=== PATIENT | female | born 1990 | race Caucasian/White ===

== ENCOUNTER 2022-05-07 12:10 | Outpatient (CLI) | payer BC, SELFPAY ==
--- NOTE | 2022-05-07 12:15 | CRLHL7_ITS ---
For Patients: As a result of the Cures Act, medical imaging exams and procedure reports are released immediately into your electronic medical record. You may view this report before your referring provider. If you have questions, please contact your health care provider. INDICATION: First trimester scan, establish dates. COMPARISON: None. TECHNIQUE: Real-time pickett-scale imaging of the pelvis was performed. FINDINGS: Sonographic imaging demonstrates a single living intrauterine gestation. The embryo demonstrates a regular cardiac rate measuring 122 beats per minute. The embryo`s crown-rump length measurement of 0.7 cm corresponds to a gestational age of 6 weeks 4 days with a sonographic due date of 12/27/2022. There is a normal-appearing yolk sac. There are no gross abnormalities noted within the embryo at this early state of development. The gestational sac has a normal appearance. There is a 2.1 x 1.4 x 3.1 cm perigestational hemorrhage. The amount of fluid within the sac appears appropriate for gestational age. The cervix is closed. The myometrium appears normal. The ovaries are of normal size. Corpus luteal cyst left ovary measuring 2.8 cm. Hemorrhagic right ovarian cyst measuring 2.4 cm. There are no suspicious fluid collections noted in the cul-de-sac. IMPRESSION: Single living intrauterine with sonographic gestational age 6 weeks 4 days and sonographic due date 12/27/2022. Left fundal subchorionic hemorrhage measuring 2.1 x 1.4 x 3.1 cm. Dictated by Petr Feliz MD @ 05/07/2022 4:38:00 PM (Electronically Signed)
== END 2022-05-07 12:11 | disposition home or self-care (01) ==
PROVIDERS: Visit Provider Advanced Practice Midwife
DX: Z34.91 Encounter for supervision of normal pregnancy, unspecified, first trimester (principal); Z3A.01 Less than 8 weeks gestation of pregnancy
CPT/HCPCS: 76817

== ENCOUNTER 2022-05-07 13:54 | Outpatient (CLI) | payer BC, SELFPAY ==
[2022-05-07 18:06] LABS: Hepatitis B Surface Antigen* Negative (Negative)
[2022-05-07 18:12] LABS: HIV 1/2/P24 Combo Screen* Negative (Negative)
[2022-05-07 18:23] LABS: Hepatitis C Virus Antibody* Negative (Negative)
[2022-05-09 17:16] LABS: Rapid Plasma Reagin (RPR) Non Reactive (Non Reactive)
[2022-05-09 20:42] LABS: Rubella Antibody IgG 14.3 IU/mL
== END 2022-05-07 13:55 | disposition home or self-care (01) ==
PROVIDERS: Visit Provider Advanced Practice Midwife
DX: Z34.81 Encounter for supervision of other normal pregnancy, first trimester (principal); Z3A.01 Less than 8 weeks gestation of pregnancy
CPT/HCPCS: 86592; 86703; 86762; 86787; 86803; 86850; 86900; 86901; 87086; 87340

== ENCOUNTER 2022-05-27 11:20 | Outpatient (CLI) | payer BC, SELFPAY ==
[2022-05-27 14:56] LABS: Chlamydia DNA Amplified* NOT DETECTED (No Detected); GC DNA Amplified* NOT DETECTED (No Detected)
== END 2022-05-27 11:21 | disposition home or self-care (01) ==
PROVIDERS: Visit Provider Physician Assistant
DX: R39.9 Unspecified symptoms and signs involving the genitourinary system (principal); N89.8 Other specified noninflammatory disorders of vagina
CPT/HCPCS: 87086; 87491; 87591

== ENCOUNTER 2022-08-06 12:26 | Outpatient (CLI) | payer BC, SELFPAY | END 2022-08-06 12:27 | disposition home or self-care (01) | LOC: US 12:26 | PROVIDERS: Visit Provider Pediatrics Neonatal-Perinatal Medicine | DX: O26.22 Pregnancy care for patient with recurrent pregnancy loss, second trimester (principal); Z3A.20 20 weeks gestation of pregnancy | CPT/HCPCS: 76811 ==

== ENCOUNTER 2022-08-27 14:31 | Outpatient (CLI) | payer BC, SELFPAY | END 2022-08-27 14:32 | disposition home or self-care (01) | LOC: US 14:31 | PROVIDERS: Visit Provider Pediatrics Neonatal-Perinatal Medicine | DX: O21.0 Mild hyperemesis gravidarum (principal) | CPT/HCPCS: 76816; 76820 ==

== ENCOUNTER 2022-10-01 10:46 | Outpatient (CLI) | payer BC, SELFPAY | END 2022-10-01 10:47 | disposition home or self-care (01) | LOC: NFLDREF 10-03 09:34 | PROVIDERS: Visit Provider Obstetrics & Gynecology | DX: Z34.90 Encounter for supervision of normal pregnancy, unspecified, unspecified trimester (principal) | CPT/HCPCS: 86592 ==

== ENCOUNTER 2022-12-25 09:17 | Inpatient (IN) | payer BC, SELFPAY ==
[2022-12-25] VITALS (11 sets, daily range): BP systolic 109–118; BP diastolic 59–79; PULSE 62–82; RESP 16–18; TEMP 36.3–36.7; O2SAT 99; BMI 28.4
[2022-12-25] MEDS: OXYTOCIN 10 UNIT/ML INJ IM (09:23)
--- NOTE | 2022-12-25 10:37 | W.PM.LDBA ---
Subjective History of Present Illness Date Seen: 12/25/22 Narrative: Patient is being admitted to Labor and Delivery for precipitous labor. She is a 32 year old at 40 2/7 weeks gestation. Her full history and physical was dictated by Dr. LINDO on 12/04/22. Please see this for details. Specific Issues/Plans OB Problem List: WANTS [id number] but does NOT want to know GENDER 1. Unplanned (but happily accepted) - concieved while on oral contraceptives 2. 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 Had been advised to freeze sperm before procedure if they wanted more children. This is NOT from the frozen sperm. 4. Oldest child born with Down's -[id number]: Normal -Level 2 US ordered 06/10/22: Normal anatomy, EFW: <3%. Patient with history of small babies, Dr. Goff recommends a follow up US in 3 weeks for f/u of growth -Dr. Goff F/U US 08/27/22: Breech, SDP:4.7cm, EFW: 10%, BPD: 8%, HC: 6%, AC: 21%, FL: 10%. U/A doppler S/D ratio 3.4. Normal.Recommend f/u scan in 5-6 weeks -Growth US at 28-30 weeks:Patient prefers this to be done a bit later 32 weeks if she continues to measure well during upcoming clinic appointments:Patient is respectfully declining any follow up US due to surprise bills from her last 2 US evaluations. 5. Spotting in early 6. Anxiety about previous miscarriages and risk for this COVID: declines Flu: declines Tdap: declines OB - Problem Based A/P Additional Plan (1) Active labor: Status: Acute Plan I was called that patient was on her way and she thought she might deliver in the car. We met patient at ER door and transferred her to L&D via wheelchair. Patient moved to bed and head seen . We were able to obtain FHR and patient delivered after 2-3 pushes. Delivery/Labor/Induction Plan Plan: expectant management OB Exam Physical Exam Vital signs: Pulse BP 62 116/75 07/06/23 10:36 12/25/22 10:36 Detailed Labor and Delivery Exam Patient Gravid: Yes Dilation (cm): 10 Cervix position: anterior Consistency: soft Tachysystole: No Contraction intensity: Strong/Firm Fetus (Single) Station: +3 Amniotic Membrane Status: SROM Amniotic Membrane Fluid Description: Meconium Stained Heart Rate Baseline: 140
--- NOTE | 2022-12-25 10:38 | W.PM.OBVAGDE ---
OB Procedure Vag Delivery Mother Details Mother Details: The patient is a 32 year-old, 9, Para 4, admitted on 12/25/22 at Days gestation. Additional Details Heart: heart tones during second stage were [] Delivery Details Delivery Details: Delivered over [intact perineum] via [spontaneous] vaginal delivery. was placed on maternal abdomen.? Cord was clamped and cut after a 30-60 second delay. Nose and mouth were bulb suctioned.? Infant weight pending. Event Summary Status: Mother and were stable after delivery.
--- NOTE | 2022-12-25 12:53 | W.PM.VAGDE_ITS ---
OB Procedure Vag Delivery Mother Details Mother Details: The patient is a 32 year-old, 9, Para 4, admitted on 12/25/22 at 40.2Days gestation. : 9 Para: 4 Weeks Gestation: 40.2 Admission Date: 12/25/22 Additional Details Amniotic Membrane Status: SROM Amniotic Membrane Rupture Date: 12/25/22 Amniotic Membrane Rupture Time: 09:00 Amniotic Membrane Fluid Description: Meconium Stained Analgesia/Anesthesia Type: None Waterbirth: No Pitcoin: No Intrapartal Events: Precipitous Labor <3 Hrs Labor Onset: 08:00 Pushin:17 Heart: heart tones during second stage were normal. Delivery Details Delivery Date: 12/25/22 Delivery Time: 09:18 Route of delivery: Infant Gender: Female Viability: Alive; Heart Rate Present Position at Delivery: OA Delivery Details: Delivered over intact perineum via spontaneous vaginal delivery. was liza ezra on maternal abdomen.? Cord was clamped and cut after a 30-60 second delay. Nose and mouth were bulb suctioned.? weight pending. Additional Details Shoulder Dystocia: No Placenta Delivery Time: 09:28 Placental Delivery Description: Spontaneous Procedure Done: Global Blood Loss: 100 Laceration: None Blood Loss Measurement Type: EBL Bakri Used: No Sponge/Need Count Correct: Yes Cord Vessel Description: 3 Vessels (Umbilical cord insertion looked marginal. ) Event Summary Status: Mother and infant were stable after delivery.
[2022-12-26 00:25] VITALS: BP 111/69; PULSE 69; RESP 18; TEMP 36.4; O2SAT 98
[2022-12-26 04:45] VITALS: BP 120/74; PULSE 69; RESP 18; TEMP 36.5; O2SAT 99
[2022-12-26 07:00] LABS: Hemoglobin* 10.5 gm/dL (12.0-16.0)
[2022-12-26 07:21] VITALS: BP 100/67; PULSE 70; RESP 18; TEMP 36.5; O2SAT 97
--- NOTE | 2022-12-26 07:54 | PM.OBDSVD1 ---
DS: Providers Provider Date Seen: 12/26/22 Date of admission: 12/25/22 09:17 Primary care physician: Not a Local Provider Admitting Clinician: Tracee Kunz MD Attending Physician on discharge: Tracee Kunz MD Date of Discharge: 12/26/22 DS: Diagnosis Discharge Diagnosis (1) care following vaginal delivery: Status: Acute (2) Lactating mother: Status: Acute Exam Narrative: Exam Narrative: GENERAL APPEARANCE:? normal affect, alert, no distress? MOOD:? appropriate? CHEST:? clear to auscultation and percussion? HEART:? regular rate and rhythm? ABDOMEN:? soft, non-tender the uterine fundus is 2 cm Below Umbilicus, Midline and is appropriate for the stage of recovery. ? PERINEUM:? mild edema of the perineum, there is a intact perineum that is healing well.? EXTREMITIES:? normal and no edema? Patient has no complaints? No active bleeding?? Doing well? She is requesting discharge home.? Const: Vital Signs, click to edit/add: Vital Signs - 24 hr 12/25/22 09:32 12/25/22 09:43 12/25/22 09:58 Temperature Pulse Rate 76 82 74 Pulse Rate [Pulse Oximeter] Respiratory Rate Blood Pressure 117/59 L 109/66 118/78 Blood Pressure [Ri ght Arm] Pulse Oximetry Oxygen Delivery Me thod 12/25/22 10:13 12/25/22 10:36 12/25/22 10:43 Temperature Pulse Rate 63 62 64 Pulse Rate [Pulse Oximeter] Respiratory Rate Blood Pressure 116/76 116/75 111/73 Blood Pressure [Ri ght Arm] Pulse Oximetry Oxygen Delivery Me thod 12/25/22 10:58 12/25/22 11:13 12/25/22 13:51 Temperature 98.0 F Pulse Rate 74 75 Pulse Rate [Pulse Oximeter] 69 Respiratory Rate 18 Blood Pressure 110/73 112/79 Blood Pressure [Ri ght Arm] 111/77 Pulse Oximetry 99 Oxygen Delivery Me thod Room Air 12/25/22 16:30 12/25/22 20:26 12/26/22 00:25 Temperature 97.4 F L 98.0 F 97.6 F Pulse Rate Pulse Rate [Pulse Oximeter] 69 69 69 Respiratory Rate 18 16 18 Blood Pressure Blood Pressure [Ri ght Arm] 117/76 116/65 111/69 Pulse Oximetry 99 99 98 Oxygen Delivery Me thod Room Air Room Air Room Air 12/26/22 04:45 12/26/22 07:21 Temperature 97.7 F 97.7 F Pulse Rate Pulse Rate [Pulse Oximeter] 69 70 Respiratory Rate 18 18 Blood Pressure Blood Pressure [Ri t Arm] 120/74 100/67 Pulse Oximetry 99 97 Oxygen Delivery Me thod Room Air Room Air OB - DS: Summary Hospital Course Hospital Course: Patient is a 32year old, G 3 now P 2? admitted on 12/25/22 at 40 Weeks, 2 Days gestation for labor.? She had an uncomplicated vaginal delivery.? She delivered a viable female infant.? She is breast feeding and reports things are well.? the patient has done well.? Her pain is well controlled with current medications.? She has no new complaints.? Vitals have been stable. She has remained afebrile. She is voiding without difficulty. She is passing gas and has not had a bowel movement. She is ambulating and denies any dizziness. She is planning condoms for control. Peripartum Data Infant delivery method: Vaginal Laceration description: None Episiotomy description: None complications: none Gender: Female Infant Discharge Plan: Home Status at Discharge Functional status at discharge: independent ambulation Overall status at discharge: patient is progressing back to baseline Time Spent with Patient Time attestation: Total time spent providing and/or coordinating discharge services: Discharge Plan Discharge Disposition: Home, Self-Care Date of Admission: 12/25/22 09:17 Attending Provider on Discharge: Claudia Shah Primary Care Provider: Provider,Not a Local Condition: Stable Anticipated Discharge Date/Time: 12/26/22 11:00 Discharge Medications: New docusate sodium 100 mg Capsule 100 mg PO DAILY Qty: 60 0RF Rx Instructions: Take 1-2 tablets daily as needed for constipation. ibuprofen 600 mg Tablet 600 mg PO Q6H PRNQty: 30 0RF Continued prenat.vits,neal,[id number] Tablet 1 tab PO QDAY ferrous sulfate 325 mg (65 mg iron) tablet,delayed release (DR/EC) 325 mg PO Q OTHER DAY Qty: 30 1RF Discharge Orders: Discharge Order (Routine); Ordered 12/26/22 Ordered By: Claudia Shah Additional Instructions: Discharge instructions were reviewed with the patient including signs and symptoms of infection and home going medications.? Lifting Restrictions: 20 pounds for 6? weeks? ?? Do not drive while taking narcotic pain meds.? Off Work or School for 6 weeks.? ?? Symptoms to report to doctor:? -Bleeding that saturates more than one pad per hour? -Passing clots larger than the size of a golf ball? -Pain not relieved by prescribed medication? -Fever above 100.4 degrees Fahrenheit? -A foul vaginal odor? -Difficulty in emotions, mood and functions? -Thoughts of hurting yourself and/or ? -Painful, reddened area in your breast? -Any drainage, redness or tenderness in your IV/epidural site? -Severe headache that doesn't improve after taking medications? -Changes in vision, including temporary loss of vision, blurred vision, and/or light sensitivity? -Upper abdominal pain (usually under ribs on the right side)? -Decrease in urination or painful, frequent urinating? -Chest pain? -Shortness of breath? -Tenderness or pain with redness and/swelling in the calf(s) of your leg? ?? Follow Up in clinic in 2 and 6 weeks.? ?? consultation services are available to all mothers and babies for the first year after delivery.? To make an appointment, please call [phone].? Activity Level: Activity as Tolerated Discharge Diet: Regular Follow Up Appointments: [facility] [Provider Group] Provider,Not a Local [Primary Care Provider] - Forms: [employer] Info Instructions
== END 2022-12-26 13:30 | disposition home or self-care (01) | DRG 560 ==
PROVIDERS: Admitting Provider Obstetrics & Gynecology; Visit Provider Obstetrics & Gynecology
DX: O62.3 Precipitate labor (principal); O77.0 Labor and delivery complicated by meconium in amniotic fluid; Z37.0 Single live birth; Z3A.40 40 weeks gestation of pregnancy
CPT/HCPCS: 36415; 85018; 88307; J2590

== ENCOUNTER 2023-04-21 08:50 | Outpatient (CLI) | payer BC, SELFPAY | END 2023-04-21 08:51 | disposition home or self-care (01) | LOC: NFLDREF 04-24 07:21 | PROVIDERS: Visit Provider Obstetrics & Gynecology | DX: F41.9 Anxiety disorder, unspecified (principal); R00.2 Palpitations | CPT/HCPCS: 80061; 82306; 84443 ==

== ENCOUNTER 2023-06-10 13:48 | Outpatient (CLI) | payer BC, SELFPAY | END 2023-06-10 13:49 | disposition home or self-care (01) | LOC: RAD 13:49 | PROVIDERS: PCP Internal Medicine; Visit Provider Internal Medicine | DX: R00.2 Palpitations (principal) | CPT/HCPCS: 93306 ==

== ENCOUNTER 2023-08-18 10:49 | Outpatient (CLI) | payer BC, SELFPAY ==
[2023-08-18 11:35] VITALS: BP 120/76; PULSE 102; RESP 16
--- NOTE | 2023-08-18 11:51 | W.PM.STED ---
Stress Test Note Date Date Seen: 08/18/23 Date of test: 08/18/23 Providers Referring provider: Pablo Villafuerte Primary care provider: Sarthak Flores Stress test physician: Danita Serrano Stress Test Note Stress test ordered: Exercise Stress Test Indication for test: Palpitations Stress test medicine: None Results discussion: Resting EKG: Sinus bradycardia, 50 beats per minute. Q-waves V1 V2 without any ST or T-wave abnormality. Resting blood pressure: 104/71 Stress test: Patient exercised on the treadmill following standard Antoine protocol. She exercised to 12 minutes 2 seconds achieving 12.3 Mets. She had a maximum heart rate of 160 beats per minute, maximal blood pressure of 136/84, giving her rate pressure product of 21,760. There was no arrhythmia, no ectopic beats, no evidence of any ischemic change. Patient had no symptoms during this stress test other than those associated with maximal exercise capacity. She felt no palpitations. Her maximal heart rate of 160 beats per minute which was 101% of a calculated target heart rate of 157 beats per minute. Patient was discharged here in stable condition. Impression: Subjectively negative, objectively negative treadmill stress test. Follow up suggested: Patient will complete her Zio patch that she has on. She will follow-up with cardiology/primary provider as planned.
== END 2023-08-18 10:50 | disposition home or self-care (01) ==
LOC: STRESS 10:50
PROVIDERS: PCP Internal Medicine; Visit Provider Family Medicine
DX: R00.2 Palpitations (principal)
CPT/HCPCS: 93016; 93017

== ENCOUNTER 2024-05-17 09:12 | Outpatient (CLI) | payer BC, SELFPAY ==
--- OUTSIDE RECORDS SUMMARY | 2024-05-18 13:06 | XMS_ITS | Clinical Summary ---
Author Organization [facility] Address [place], [place] [address] Care Team Providers Care Optical Mechanic Name Role Phone Sarthak Flores MD Primary Care Provider [phone] Allergies No known active allergies Medications Medication Sig Dispensed Refills Start Date End Date Status multivitamin (MVI) tablet Take 1 tablet by mouth once daily. 0 03/04/2010 Active cholecalciferol (VITAMIN D) 1,000 unit capsule Take 1 capsule by mouth once daily. 0 10/07/2010 Active omega-3 fatty acids-vitamin E (FISH OIL) 1,000 mg Cap Take by mouth. 0 10/07/2010 Act billy vitamin-folic acid 1 mg ( VITAMIN) tablet/capsule Take 1 tablet by mouth once daily. 0 02/18/2012 Active tretinoin (RETIN-A) 0.025 % 0.025 % cream APPLY TO AFFECTED AREA AT BEDTIME 0 05/24/2018 Active SUMAtriptan (IMITREX) 50 mg tablet TAKE 1 TAB AT ONSET OF HEADACHE NEEDED. MAY REPEAT IN 2 HOURS NEEDED. MAX 4 TABS IN 24 HRS. 3 05/24/2018 Active ondansetron (ZOFRAN ODT) 4 mg disintegrating tablet 4 mg every 6 hours if needed. 0 05/24/2018 Active sertraline (ZOLOFT) 50 mg tablet Take 50 mg by mouth once daily. Active Active Problems Problem Noted Date Diagnosed Date Subchorionic hemorrhage 02/18/2012 Chest pain, unspecified 10/16/2008 Immunizations Name Administration Dates Next Due DT (Age < 7 years) 07/20/2000 DTP 10/14/1993 DTaP 03/04/2010 Hepatitis B (Peds) 07/20/2000,09/02/1999, 000 Influenza, IIV3 (Age >=3 years) 04/25/2008 MMR 07/28/2000 Oral Polio Vaccine 10/14/1993 Tuberculin (PPD) 01/13/2007,10/14/1993 Family History Medical History Relation Name Comments Good Health Father Heart Disease Maternal Aunt Arteriosclero tic; at 35 years old Heart Disease Maternal Grandfather Massiv e heart attack at 36 years old; still alive; defibrillator and pacemaker Other Mother Gloria Mitral Valve cl ick/Pneumothorax Relation Name Status Comments Father Maternal Aunt Maternal Grandfather Mother Gloria Social History Tobacco Use Types Packs/Day Years Used Date Smoking Tobacco: Never Smokeless Tobacco: Never Tobacco Cessation:Counseling Given: Yes Alcohol Use Standard Drinks/Week Comments Yes 2 (1 standard drink = 0.6 oz pur e alcohol) occ Social Connections Answer Date Recorded Frequency of Communication with Friends and Fami ly Not on file 08/06/2023 Sex and Gender Information Value Date Recorded Sex Assigned at Not on file Gender Identity Not on file Sexual Orientation Not on file Obstetrics History Para Term AB IAB SAB Ectopic Multiple Livin g Live Births 1 Date Outcome GA Total Labor Labor/2nd/3rd Weight Sex Type Anes PTL Gracia A1 A5 Name Clin Last Filed Vital Signs Vital Sign Reading Time Taken Comments Blood Pressure 105/68 09/23/2023 12:00 PM CDT Pulse 57 09/23/2023 12:00 PM CDT Temperature 36.7 C (98.1 F) 02/18/2012 4:29 PM CDT Respiratory Rate - - Oxygen Saturation 97% 07/07/2018 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 Inhaled Oxygen Concentration - - Weight 83 kg (183 lb) 07/07/2018 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 Height 165.7 cm (5' 5.25) 03/04/2010 11:19 AM C DT Body Mass Index 30.22 03/04/2010 11:19 AM CDT Plan of Treatment Health Maintenance Due Date Last Done Comments Tdap 1999 Depression screening for age 12+ 2000 HIV for age 15-65 2003 BMI (ht and wt on same day) for age 18+ 2006 Hepatitis C screening for age 18-79 2006 Tetanus booster 2008 Pap test for age 21-65 01/16/2023 0, 01/17/2020, 07/01/2017, Additional history exists COVID-19 vaccine series (2023-25 season) 2024 Influenza for age 9-49 02/21/2024 04/25/2008 Pneumococcal series for age 6-64 Aged Out No longer eligible based on patient's age to complete this topic Procedures Procedure Name Priority Date/Time Associated Diagnosis Comments MAGNETIC LOCATER THIN PREP PAP SCREEN IMAGED Routine 01/17/2020 12:45 PM CDT from Last 3 Months or Most Recently Relevant to Health Maintenance Results * MAGNETIC LOCATER THIN PREP PAP SCREEN IMAGED (01/17/2020 12:45 PM CDT) Case Report Gynecologic Cytology Report Case: [id number] Authorizing Provider: Susan Muñoz MD Collected: 01/17/2020 1245 Ordering Location: [facility] Received: 01/19/2020 1131 First Screen: Pito Souza Specimen: MAGNETIC LOCATER ThinPrep Vial Screening, Cervical/Vaginal 01/24/2020 3:02 PM CDT [facility] INTERPRETATION/ RESULT NEGATIVE FOR INTRAEPITHELIAL LESION OR MALIGNANCY (NIL) (none) 01/24/2020 3:02 PM CDT [facility] IMEN ADEQUACY Satisfactory for evaluation Endocervical component present 01/24/2020 3:02 PM CDT [facility] HPV REQUEST HPV and PAP 01/24/2020 3:02 PM CDT [facility] Last Pap Date 07/01/2017 01/24/2020 3:02 PM CDT [facility] Last Pap Result NIL 0 3:02 PM CDT [facility] Menstrual Status 01/24/2020 3:02 PM CDT [facility] Additional Information 01/24/2020 3:02 PM CDT [facility] Comment: Interpreted at [facility] - [address], [place] [address] Automated Review Successful 01/24/2020 3:02 PM CDT [facility] Comment:Specimen processed s uccessfully by automated network security architect device, ThinPrep Imaging System, [employer] ANCILLARY TESTING MAGNETIC LOCATER HPV Ordered, Please see separate report 01/24/2020 3:02 PM CDT [facility] Note The pap test is a screening technique, not a diagnostic procedure. It is used primarily to screen for squamous cancers and precursor lesions. Published studies have shown that it is subject to both false negative and false positive results. The pap test should not be used as the sole means to diagnose or exclude pre-malignant and malignant lesions. 01/24/2020 3:02 PM CDT [facility] Other (Cervical/Vagina l) 01/17/2020 12:45 PM CDT 01/19/2020 11:31 AM CDT Susan Muñoz MD PATHOLOGY/CYTOLOGY [facility] [address] [place] [address], from Last 3 Months or Most Recently Relevant to Health Maintenance Care Teams Optical Mechanic Relationship Specialty Start Date End Date Sarthak Flores MD [address] [place] [address] PCP - General Internal Medicine 08/06/23
== END 2024-05-17 09:13 | disposition home or self-care (01) ==
PROVIDERS: PCP Internal Medicine; Referring Provider Internal Medicine; Visit Provider Obstetrics & Gynecology
DX: R00.2 Palpitations (principal); F41.9 Anxiety disorder, unspecified; Z13.1 Encounter for screening for diabetes mellitus; Z13.6 Encounter for screening for cardiovascular disorders
CPT/HCPCS: 80053; 80061; 82306; 84443

== ENCOUNTER 2024-09-21 11:45 | Outpatient (CLI) | payer BC, SELFPAY ==
[2024-09-21 14:45] LABS: Chlamydia DNA Amplified* NOT DETECTED (No Detected); GC DNA Amplified* NOT DETECTED (No Detected)
[2024-09-23 04:31] LABS: HPV Source Cervix; HPV, High Risk by TMA Not Detected
== END 2024-09-21 11:46 | disposition home or self-care (01) ==
PROVIDERS: PCP Internal Medicine; Visit Provider Obstetrics & Gynecology
DX: N90.89 Other specified noninflammatory disorders of vulva and perineum (principal); R30.0 Dysuria; Z11.3 Encounter for screening for infections with a predominantly sexual mode of transmission; Z12.4 Encounter for screening for malignant neoplasm of cervix; Z11.51 Encounter for screening for human papillomavirus (HPV)
CPT/HCPCS: 86592; 86694; 86703; 86706; 86803; 87086; 87252; 87340; 87491; 87591; 87624; 87625; 88141; 88142

== ENCOUNTER 2024-09-23 15:31 | Outpatient (CLI) | payer BC, SELFPAY | END 2024-09-23 15:32 | disposition home or self-care (01) | LOC: NFLDREF 15:35 | PROVIDERS: PCP Internal Medicine; Visit Provider Obstetrics & Gynecology | DX: N90.89 Other specified noninflammatory disorders of vulva and perineum (principal) | CPT/HCPCS: 87529 ==

== ENCOUNTER 2024-10-06 09:22 | Outpatient (CLI) | payer BC, SELFPAY | END 2024-10-06 09:23 | disposition home or self-care (01) | LOC: NFLDREF 10-09 19:31 | PROVIDERS: PCP Internal Medicine; Referring Provider Internal Medicine; Visit Provider Obstetrics & Gynecology | DX: R35.0 Frequency of micturition (principal) | CPT/HCPCS: 87086 ==

== ENCOUNTER 2025-06-20 08:05 | Outpatient (CLI) | payer BC, SELFPAY | END 2025-06-20 08:06 | disposition home or self-care (01) | LOC: NFLDREF 06-27 11:34 | PROVIDERS: PCP Internal Medicine; Referring Provider Internal Medicine; Visit Provider Obstetrics & Gynecology | DX: Z00.00 Encounter for general adult medical examination without abnormal findings (principal); F41.9 Anxiety disorder, unspecified; Z13.228 Encounter for screening for other metabolic disorders; Z13.6 Encounter for screening for cardiovascular disorders | CPT/HCPCS: 80053; 80061; 84443 ==